=== PATIENT | male | born 1945 | race Caucasian/White ===

== ENCOUNTER → 2016-06-27 | Outpatient (CLI) | payer BC ==
[2016-06-27 10:27] LABS: ALT/SGPT 39 U/L (12-78); AST/SGOT 19 U/L (15-37); BLOOD UREA NITROGEN 20 mg/dl (7-18); BUN/CREATININE RATIO 15.5 (10-20); CALCIUM 9.1 mg/dl (8.5-10.1); CARBON DIOXIDE 30 mmol/L (21-32); CHLORIDE 104 mmol/L (98-107); GLUCOSE 98 mg/dl (70-99); POTASSIUM 4.2 mmol/L (3.5-5.1); SODIUM 142 mmol/L (136-145)
[2016-06-27 10:36] LABS: ALB/GLOB RATIO 1.1 (0.9-2); ALKALINE PHOSPHATASE 79 U/L (45-117); CHOLESTEROL 146 mg/dl (0-200); CHOLESTEROL/HDL RATIO 3.4; HDL CHOLESTEROL 43 mg/dl; LDL CHOLESTEROL CALCULATED 68 mg/dl; TRIGLYCERIDES 175 mg/dl (0-150); VERY LOW DENSITY LIPOPROT CALC 35 mg/dl
== END | disposition home or self-care (01) ==
LOC: C.LAB1850 08:24
PROVIDERS: ATTEND Internal Medicine
DX: E78.5 Hyperlipidemia, unspecified (principal)

== ENCOUNTER → 2017-02-26 | Outpatient (CLI) | payer BC ==
[2017-02-26 09:49] LABS: ALT/SGPT 36 U/L (12-78); BLOOD UREA NITROGEN 16 mg/dl (7-18); BUN/CREATININE RATIO 13.4 (10-20); CALCIUM 9.3 mg/dl (8.5-10.1); CARBON DIOXIDE 28 mmol/L (21-32); CHLORIDE 105 mmol/L (98-107); GLUCOSE 109 mg/dl (70-99); POTASSIUM 4.2 mmol/L (3.5-5.1); SODIUM 141 mmol/L (136-145)
[2017-02-26 09:52] LABS: ALKALINE PHOSPHATASE 84 U/L (45-117); AST/SGOT 24 U/L (15-37)
== END | disposition home or self-care (01) ==
LOC: C.LAB1850 08:20
PROVIDERS: ATTEND Internal Medicine
DX: E78.5 Hyperlipidemia, unspecified (principal); N40.1 Benign prostatic hyperplasia with lower urinary tract symptoms

== ENCOUNTER → 2017-04-10 | Outpatient (CLI) | payer BC | LOC: C.PATHSPEC 16:40 | PROVIDERS: ATTEND Dermatology | DX: B07.9 Viral wart, unspecified (principal) ==

== ENCOUNTER → 2017-08-27 | Outpatient (CLI) | payer BC ==
[2017-08-27 10:10] LABS: ALBUMIN 3.8 gm/dl (3.4-5.0); ALT/SGPT 42 U/L (12-78); BLOOD UREA NITROGEN 17 mg/dl (7-18); CARBON DIOXIDE 30 mmol/L (21-32); CHOLESTEROL 133 mg/dl (0-200); CREATININE 1.14 mg/dl (0.60-1.40); GLUCOSE 102 mg/dl (70-99); SODIUM 139 mmol/L (136-145)
[2017-08-27 10:19] LABS: ALKALINE PHOSPHATASE 76 U/L (45-117); AST/SGOT 24 U/L (15-37); LDL CHOLESTEROL CALCULATED 62 mg/dl; TOTAL PROTEIN 7.3 gm/dl (6.4-8.2)
== END | disposition home or self-care (01) ==
LOC: C.LAB1850 08:39
PROVIDERS: ATTEND Internal Medicine
DX: E78.5 Hyperlipidemia, unspecified (principal); R94.6 Abnormal results of thyroid function studies

== ENCOUNTER 2019-02-15 17:23 | Inpatient (IN) ==
[2019-02-15] MEDS ORDERED: FAMOTIDINE 20MG/5ML IV PUSH IV STA (18:04)
[2019-02-15] MEDS ORDERED: SODIUM CHLORIDE 0.9% 500 ML IV STA (18:04)
[2019-02-15 18:29] LABS: Hematocrit (blood only) 45.5 % (42-52); Hemoglobin 16.4 g/dL (14.0-18.0); Mean Platelet Volume 10.7 fL (7.4-10.4); Platelet Count 184 K/uL (130-400); RDW Coefficient of Variation 12.7 % (11.5-14.5); Red Blood Count 5.29 M/uL (4.7-6.1); White Blood Count 6.22 K/uL (4.8-10.8)
[2019-02-15 18:42] LABS: INR 1.1 (0.9-1.1); Prothrombin Time 10.8 Seconds (9.0-12.0)
[2019-02-15 18:46] LABS: Alanine Aminotransferase 34 U/L (12-78); Albumin Level 4.3 gm/dl (3.4-5.0); Aspartate Aminotransferase 24 U/L (15-37); Blood Urea Nitrogen 18 mg/dl (7-18); Calcium 9.7 mg/dl (8.5-10.1); Carbon Dioxide 30 mmol/L (21-32); Chloride 103 mmol/L (98-107); Est GFR (African American) 64.1; Est GFR (Non-African American) 55.3; Glucose 104 mg/dl (70-99); Potassium 3.8 mmol/L (3.5-5.1); Sodium 141 mmol/L (136-145)
[2019-02-15 18:49] LABS: Albumin Globulin Ratio 1.2 (0.9-2); Alkaline Phosphatase 86 U/L (45-117); Bilirubin,Total 0.5 mg/dl (0.2-1); Globulin 3.5 gm/dl (2.5-4.0); Total Protein 7.8 gm/dl (6.4-8.2)
[2019-02-15] MEDS ORDERED: PANTOprazole 80 MG in DEXTROSE 5% 100 ML IV ONE (19:15)
--- NOTE | 2019-02-15 19:46 | Emergency Department Note ---
Entered by Kylah Irizarry acting as a scribe for History of Present Illness General Chief complaint: GI Assessment Stated complaint: BLOODY DIARRHEA Time Seen by Provider: 02/15/19 17:57 Source: patient History of Present Illness Onset (ago): day(s) (last night) Location: abdomen Pain Consistency: + other (sudden) Maximum Pain Intensity: 0 Quality: + other (GI assessment) Associated symptoms: + other (Positive bright red bloody stool (now diarrhea). Negative pain, previous GI bleeding, being on blood thinners); no nausea/vomiting The patient is a 73 year old male who presents to the ED for a GI assessment. He states that last night he suddenly passed a bright red bloody stool. Since then, he reports he has had bloody diarrhea. He denies any pain, nausea, vomiting, previous GI bleeding, being on blood thinners. He states he had a colonoscopy about 6 years ago. Home Medications Home Medications Medication Instructions Recorded Confirmed Type bimatoprost 0.03 % eye drops 1 drp OP PM ml 11/28/18 02/15/19 History atenolol 25 mg tablet 25 mg PO QAM #90 tab 12/30/18 02/15/19 History simvastatin 20 mg tablet 20 mg PO QPM #90 tab 12/30/18 02/15/19 History hydrochlorothiazide 25 mg PO QAM 02/15/19 02/15/19 History ibuprofen 400 mg PO Q6H PRN 02/15/19 02/15/19 History naproxen sodium [Aleve] 220 mg PO Q12H PRN 02/15/19 02/15/19 History Allergies Allergy/AdvReac Type Severity Reaction Status Date / Time allergan hydrocare saline Allergy Mild Red eyes, Uncoded 02/15/19 17:59 itch Past Med/Surg History Medical History Voice disturbance (Acute) Schatzki's ring (Acute) Male erectile disorder of organic origin (Acute) Hypertension (Chronic) Hyperlipidemia (Chronic) History of shortness of breath (Resolved) Enlarged prostate with lower urinary tract symptoms (LUTS) (Acute) Benign prostate hyperplasia (Chronic) Acid reflux (Chronic) Abnormal glucose (Acute) Abnormal finding on thyroid function test (Acute) Glaucoma Surgical History History of hernia repair S/P tonsillectomy S/P vasectomy Social History Preferred Language: Greenlandic Communication Ability: Effective Educational Audiologist Required: No Beliefs That Will Affect Care: None marital status: Current Living Situation: Spouse current occupational status: retired Feels Safe at Home: Yes Smoking Status: Never smoker Hx Alcohol Use: No Hx Substance Use: No Childhood Exposure to Second-Hand Smoke: No Dental Care, Regularly: Yes Physical Activity Frequency: 3-4 Times per Week Seatbelt Use: always Review of Systems See HPI for pertinent positives & negatives. and A total of 10 systems reviewed and were otherwise negative Physical Exam Vital Signs Vital Signs - 24 hr 02/15/19 17:34 02/15/19 18:22 02/15/19 19:31 Temperature 36.9 C Temperature Source Oral Sepsis Recent Fever Within 48 Hours No Sepsis Action Taken by Nursing No Action Required Pulse Rate 78 67 Pulse Rate [Left Finger] 71 Pulse Rate from SpO2 Sensor 63 Respiratory Rate 20 15 18 Respiratory Effort / Characteristics Non-Labored Non-Labored Respiratory Depth Normal Normal Respiratory Pattern Regular Blood Pressure 194/88 H 167/90 H Blood Pressure [Right Arm] 192/91 H Blood Pressure Mean 123 115 Blood Pressure Mean [Right Arm] 124 Pulse Oximetry 96 94 96 Oxygen Delivery Method Room Air Room Air 02/15/19 20:00 Temperature Temperature Source Sepsis Recent Fever Within 48 Hours Sepsis Action Taken by Nursing Pulse Rate 68 Pulse Rate [Left Finger] Pulse Rate from SpO2 Sensor 60 Respiratory Rate 17 Respiratory Effort / Characteristics Respiratory Depth Respiratory Pattern Blood Pressure 145/84 H Blood Pressure [Right Arm] Blood Pressure Mean 104 Blood Pressure Mean [Right Arm] Pulse Oximetry 96 Oxygen Delivery Method GENERAL: Patient is in no acute distress. HEENT: No acute trauma, normocephalic atraumatic, mucous membranes moist, no nasal congestion, no scleral icterus. NECK: No stridor, no adenopathy, no meningismus, trachea is midline. LUNGS: Clear to auscultation bilaterally, no wheeze, no rhonchi, breath sounds equal. HEART: Without murmurs gallops or rubs, regular rate and rhythm. ABDOMEN: Soft, nontender, bowel sounds positive, no hernias, no peritonitis. RECTAL: No external source for bleeding. No hemorrhoid. Stool is dark, maroon/red. Almost all blood. Heme positive. EXTREMITIES: No cyanosis or edema, full range of motion of all the joints without pain or difficulty, no signs for acute trauma. NEUROLOGIC: Oriented x 3, no acute motor or sensory deficits, no focal weakness. SKIN: No rash, no jaundice, no diaphoresis. Course 1758: Past medical records reviewed. The patient was evaluated in room C10. A complete history and physical exam was performed. 1913: Discussed the patient's case with Dr. Craft, [facility] Hospitalist. The patient will be evaluated for further management. Administered Medications Pantoprazole Sodium 40 mg/ (Dextrose) 100 mls @ 20 mls/hr IV Q5H TODD Stop: 02/18/19 19:29 Last Admin: 02/15/19 19:47 Dose: 20 mls/hr Documented by: [id number] Lactated Ringer's (Lr) 1,000 mls @ 125 mls/hr IV .Q8H TODD Stop: 03/17/19 21:41 Last Admin: 02/15/19 21:53 Dose: 125 mls/hr Documented by: [id number] Discontinued Medications Famotidine (Pepcid 20mg Iv Push) 20 mg IV ONE STA Stop: 02/15/19 18:05 Last Admin: 02/15/19 18:27 Dose: 20 mg Documented by: [id number] Sodium Chloride (Nss) 500 mls @ 999 mls/hr IV .Q31M STA Stop: 02/15/19 18:34 Last Infusion: 02/15/19 19:33 Dose: 0 mls/hr Documented by: [id number] Admin: 02/15/19 18:25 Dose: 999 mls/hr Documented by: [id number] Pantoprazole Sodium 80 mg/ (Dextrose) 120 mls @ 480 mls/hr IV NOW ONE Stop: 02/15/19 19:29 Last Infusion: 02/15/19 19:46 Dose: 0 mls/hr Documented by: [id number] Admin: 02/15/19 19:28 Dose: 480 mls/hr Documented by: [id number] Medical Decision Making Differential Diagnosis Differential diagnosis: Etiologies such as anemia, upper GI bleeding, ulcer, gastritis, lower GI bleeding, polyp, diverticular bleeding, coagulopathy, hemorrhoid, as well as others were entertained. Medical Records Attestation: I reviewed the patient's medical records. Home Medications Current Medication List: was personally reviewed by me Laboratory Data Attestation: I reviewed the patient's lab results. Result diagrams: 02/15/19 18:14 02/15/19 18:14 Lab Results 02/15/19 02/15/19 02/15/19 Range/Units 18:14 18:14 18:14 WBC 6.22 (4.8-10.8) K/uL RBC 5.29 (4.7-6.1) M/uL Hgb 16.4 (14.0-18.0) g/dL Hct 45.5 (42-52) % MCV 86.0 (80-100) fL MCH 31.0 (25-34) pg MCHC 36.0 (32-36) g/dL RDW Std Deviation 40.0 (36.4-46.3) fL RDW Coeff of Bess 12.7 (11.5-14.5) % Plt Count 184 (130-400) K/uL MPV 10.7 H (7.4-10.4) fL PT 10.8 (9.0-12.0) Seconds INR 1.1 (0.9-1.1) APTT 26.0 (21.0-31.0) Seconds PTT Ratio 1.0 Sodium 141 (136-145) mmol/L Potassium 3.8 (3.5-5.1) mmol/L Chloride 103 (98-107) mmol/L Carbon Dioxide 30 (21-32) mmol/L Anion Gap 8.0 (3-11) BUN 18 (7-18) mg/dl Creatinine 1.27 (0.6-1.4) mg/dl Est Cr Clr Drug Dosing Not Reportable Est GFR ( Amer) 64.1 Est GFR (Non-Af Amer) 55.3 BUN/Creatinine Ratio 14.0 (10-20) Glucose 104 H (70-99) mg/dl Calcium 9.7 (8.5-10.1) mg/dl Total Bilirubin 0.5 (0.2-1) mg/dl AST 24 (15-37) U/L ALT 34 (12-78) U/L Alkaline Phosphatase 86 (45-117) U/L Total Protein 7.8 (6.4-8.2) gm/dl Albumin 4.3 (3.4-5.0) gm/dl Globulin 3.5 (2.5-4.0) gm/dl Albumin/Globulin Ratio 1.2 (0.9-2) Blood Type Antibody Screen 02/15/19 Range/Units 18:14 WBC (4.8-10.8) K/uL RBC (4.7-6.1) M/uL Hgb (14.0-18.0) g/dL Hct (42-52) % MCV (80-100) fL MCH (25-34) pg MCHC (32-36) g/dL RDW Std Deviation (36.4-46.3) fL RDW Coeff of Bess (11.5-14.5) % Plt Count (130-400) K/uL MPV (7.4-10.4) fL PT (9.0-12.0) Seconds INR (0.9-1.1) APTT (21.0-31.0) Seconds PTT Ratio Sodium (136-145) mmol/L Potassium (3.5-5.1) mmol/L Chloride (98-107) mmol/L Carbon Dioxide (21-32) mmol/L Anion Gap (3-11) BUN (7-18) mg/dl Creatinine (0.6-1.4) mg/dl Est Cr Clr Drug Dosing Est GFR ( Amer) Est GFR (Non-Af Amer) BUN/Creatinine Ratio (10-20) Glucose (70-99) mg/dl Calcium (8.5-10.1) mg/dl Total Bilirubin (0.2-1) mg/dl AST (15-37) U/L ALT (12-78) U/L Alkaline Phosphatase (45-117) U/L Total Protein (6.4-8.2) gm/dl Albumin (3.4-5.0) gm/dl Globulin (2.5-4.0) gm/dl Albumin/Globulin Ratio (0.9-2) Blood Type B Positive Antibody Screen NEGATIVE Blood Pressure Blood Pressure Findings: Elevated blood pressure Blood Pressure Disposition: further management by hospitalist DREW Narrative There is no leukocytosis or concerning anemia. No coagulopathy. No significant electrolyte abnormality or kidney failure. No evidence for liver enzyme elevati on. Blood type returned at B+. On exam, the patient was not toxic or febrile. He was not hypotensive. The patient did not have any abdominal pain. Rectal exam revealed dark maroon-colored stool which was heme positive. No external source for bleeding was noted. Patient presents with GI bleeding, likely lower GI bleeding. He was given IV saline for hydration. He received IV Pepcid and IV Protonix and then was placed on an IV Protonix drip. The patient requires a hospital stay for work-up for this bleeding. He will likely require a colonoscopy, may be even an endoscopy. Right now, he does not require a blood transfusion. I did speak to the patient and lead case manager. The on-call hospitalist was consulted. Impression & Plan GI bleed, Bright red blood per rectum Discharge Plan Visit Data *Final* Discharge Date/Time: 02/15/19 21:24 Chief Complaint: GI Assessment Stated Complaint: BLOODY DIARRHEA ED Provider: Chinmay Arevalo Discharge Problem: GI bleed, Bright red blood per rectum Patient Disposition: Admitted As Inpatient Discharge Instructions Interventions: ED Discharge Assessment Last Done: 02/15/19 21:24 Discharge Problem: GI bleed Qualifiers: GI bleed type/associated pathology: unspecified gastrointestinal hemorrhage typ e Qualified Code(s): K92.2 - Gastrointestinal hemorrhage, unspecified The scribe's documentation has been prepared under my direction and personally reviewed by me in its entirety. I confirm that the note above accurately reflects all work, treatment, procedures, and medical decision making performed by me.
[2019-02-15] MEDS: PANTOprazole 40 MG in DEXTROSE 5% 100 ML IV SCH ×2 (19:47→23:50)
--- NOTE | 2019-02-15 21:33 | History & Physical Report ---
Date of Service February 15, 2019 Assessment & Plan (1) GI bleed: Admit tele Follow H&H IVF Npo GI consult Protonix gtt DVT prophylaxis = SCDs, holding pharmcologic due to bleeding. Present on Admission?: Yes (2) Bright red blood per rectum: (3) Hypertension: Continue atenolol hold HCTZ Hydralazine PRN Present on Admission?: Yes (4) Hyperlipidemia: Continue Simvastatin (5) Benign prostate hyperplasia: (6) Acid reflux: On Protonix gtt Patient does not use PPI or H2 dc routinely. History of Present Illness 73 y/o male presented to the ED with bright red blood per rectum over a 24 hour period. No F/C, abdominal or epigastric pain, N/V. He has mild cramping pain just prior to bm. He has no history of GI bleeding. He uses Aleve or Ibuprofen intermittently for arthritic pain, but has not increased as of recent. No chest pain or SOB. In the ED he has had 2 maroon colored bms which are heme +. No lightheadedness or syncope. He had a colonoscopy >5 years ago but does not recall the provider who performed. Primary Care Provider: Phan Salcido MD Allergies Allergy/AdvReac Type Severity Reaction Status Date / Time allergan hydrocare saline Allergy Mild Red eyes, Uncoded 02/15/19 17:59 itch Home Medications Home Medications Medication Instructions Recorded Confirmed Type bimatoprost 0.03 % eye drops 1 drp OP PM ml 11/28/18 02/15/19 History atenolol 25 mg tablet 25 mg PO QAM #90 tab 12/30/18 02/15/19 History simvastatin 20 mg tablet 20 mg PO QPM #90 tab 12/30/18 02/15/19 History hydrochlorothiazide 25 mg PO QAM 02/15/19 02/15/19 History ibuprofen 400 mg PO Q6H PRN 02/15/19 02/15/19 History naproxen sodium [Aleve] 220 mg PO Q12H PRN 02/15/19 02/15/19 History Past Med/Surg History Medical History Voice disturbance (Acute) Schatzki's ring (Acute) Male erectile disorder of organic origin (Acute) Hypertension (Acute) Hyperlipidemia (Acute) History of shortness of breath (Resolved) Enlarged prostate with lower urinary tract symptoms (LUTS) (Acute) Benign prostate hyperplasia (Acute) Acid reflux (Acute) Abnormal glucose (Acute) Abnormal finding on thyroid function test (Acute) Glaucoma Surgical History History of hernia repair S/P tonsillectomy S/P vasectomy Social History Preferred Language: Slovenian marital status: Current Living Situation: Spouse current occupational status: retired Feels Safe at Home: Yes Smoking Status: Never smoker Hx Alcohol Use: No Hx Substance Use: No Childhood Exposure to Second-Hand Smoke: No Dental Care, Regularly: Yes Physical Activity Frequency: 3-4 Times per Week Seatbelt Use: always Review of Systems Review of Systems: NEEDS EDITING Constitutional- no fever; no weight loss Eyes- no acute visual changes ENT- no sinus drainage; no pharyngitis Pulmonary- no cough, no wheezing, no shortness of breath Cardiac- no chest pain, no palpitations, no orthopnea, no dependent edema GI- As in HPI - no dysuria, no hematuria Musculoskeletal- no myalgias, + chronic arthritic pain Derm- no rashes, no new skin lesions, no changing skin lesions Hematologic- no unusual bruising, no unusual bleeding Lymphatics- no adenopathy Endocrine- no polyuria or polydipsia; no heat or cold intolerance Neuro- no headaches, no focal neurologic symptoms Psych- no anxiety, no depression Physical Exam Physical Exam: NEEDS EDITING General- adult male, NAD Head- atraumatic Eyes- PERRL, EOMI, anicteric ENT- oropharynx clear Neck- supple, no JVD, no adenopathy, no thyromegaly. Lungs- clear to auscultation and percussion, No rales, rhonchi, or wheezes Heart- regular rhythm; no murmur, no gallop, no rub appreciated Abdomen- normal bowel sounds, soft, nontender. Extremities- no pretibial edema, no calf tenderness; peripheral pulses intact Neuro- alert, oriented x 3; PERRL, EOMI, Non-focal, child care development specialist II-XII grossly intact. Skin- warm & dry Results & Data Vital Signs (Past 12 Hours) Vital Signs Temp Pulse Pulse Resp BP BP Pulse Ox 02/15/19 20:30 84 13 165/102 H 97 02/15/19 20:00 68 17 145/84 H 96 02/15/19 19:31 67 18 167/90 H 96 02/15/19 18:22 71 15 192/91 H 94 02/15/19 17:34 36.9 C 78 20 194/88 H 96 Laboratory Results Laboratory Results WBC 6.22 K/uL (4.8-10.8) 02/15/19 18:14 RBC 5.29 M/uL (4.7-6.1) 02/15/19 18:14 Hgb 16.4 g/dL (14.0-18.0) 02/15/19 18:14 Hct 45.5 % (42-52) 02/15/19 18:14 MCV 86.0 fL (80-100) 02/15/19 18:14 MCH 31.0 pg (25-34) 02/15/19 18:14 MCHC 36.0 g/dL (32-36) 02/15/19 18:14 RDW Std Deviation 40.0 fL (36.4-46.3) 02/15/19 18:14 RDW Coeff of Bess 12.7 % (11.5-14.5) 02/15/19 18:14 Plt Count 184 K/uL (130-400) 02/15/19 18:14 MPV 10.7 fL (7.4-10.4) H 02/15/19 18:14 PT 10.8 Seconds (9.0-12.0) 02/15/19 18:14 INR 1.1 (0.9-1.1) 02/15/19 18:14 APTT 26.0 Seconds (21.0-31.0) 02/15/19 18:14 PTT Ratio 1.0 02/15/19 18:14 Sodium 141 mmol/L (136-145) 02/15/19 18:14 Potassium 3.8 mmol/L (3.5-5.1) 02/15/19 18:14 Chloride 103 mmol/L (98-107) 02/15/19 18:14 Carbon Dioxide 30 mmol/L (21-32) 02/15/19 18:14 Anion Gap 8.0 (3-11) 02/15/19 18:14 BUN 18 mg/dl (7-18) 02/15/19 18:14 Creatinine 1.27 mg/dl (0.6-1.4) 02/15/19 18:14 Est Cr Clr Drug Dosing Not Reportable 02/15/19 18:14 Est GFR ( Amer) 64.1 02/15/19 18:14 Est GFR (Non-Af Amer) 55.3 02/15/19 18:14 BUN/Creatinine Ratio 14.0 (10-20) 02/15/19 18:14 Glucose 104 mg/dl (70-99) H 02/15/19 18:14 Calcium 9.7 mg/dl (8.5-10.1) 02/15/19 18:14 Total Bilirubin 0.5 mg/dl (0.2-1) 02/15/19 18:14 AST 24 U/L (15-37) 02/15/19 18:14 ALT 34 U/L (12-78) 02/15/19 18:14 Alkaline Phosphatase 86 U/L (45-117) 02/15/19 18:14 Total Protein 7.8 gm/dl (6.4-8.2) 02/15/19 18:14 Albumin 4.3 gm/dl (3.4-5.0) 02/15/19 18:14 Globulin 3.5 gm/dl (2.5-4.0) 02/15/19 18:14 Albumin/Globulin Ratio 1.2 (0.9-2) 02/15/19 18:14 Blood Type B Positive 02/15/19 18:14 Antibody Screen NEGATIVE 02/15/19 18:14 Code Status & VTE Plan VTE Prophylaxis Plan VTE Prophylaxis will be ordered: Yes PG Care Time/CCT Total # of Minutes Spent Total Time Spent: 45 Total Time Spent with Patient: Total time spent is greater than 50% in coordination of care (as documented) at patient's floor/unit and/or counseling patient: (1) GI bleed GI bleed type/associated pathology: unspecified gastrointestinal hemorrhage type Qualified Code(s): K92.2 - Gastrointestinal hemorrhage, unspecified
[2019-02-15] MEDS ORDERED: MoRPHine SULFATE 4 MG/ML 1 ML CARP\\VIAL IV PRN (21:42)
[2019-02-15] MEDS ORDERED: ONDANSETRON INJ 2 MG/ML 2 ML VIAL IV PRN (21:42)
[2019-02-15] MEDS ORDERED: ACETAMINOPHEN 325 MG TAB PO PRN (21:42)
[2019-02-15] MEDS ORDERED: MoRPHine SULFATE 2 MG/ML CARP IV PRN (21:42)
[2019-02-15] MEDS ORDERED: HydrALAZINE HCL 20 MG/ML VIAL IV PRN (21:42)
[2019-02-15] MEDS: LACTATED RINGER'S 1,000 ML IV SCH (21:53)
[2019-02-15] MEDS: SIMVASTATIN 20 MG TAB PO SCH (22:18)
[2019-02-16 00:25] LABS: Hematocrit (blood only) 39.8 % (42-52); Hemoglobin 13.9 g/dL (14.0-18.0)
[2019-02-16] MEDS: LACTATED RINGER'S 1,000 ML IV SCH ×4 (05:12→23:02)
[2019-02-16] MEDS: PANTOprazole 40 MG in DEXTROSE 5% 100 ML IV SCH ×3 (05:12→15:18)
[2019-02-16 05:38] LABS: Hematocrit (blood only) 38.6 % (42-52); Hemoglobin 13.3 g/dL (14.0-18.0); Mean Corpuscular Hgb Conc 34.5 g/dL (32-36); Mean Corpuscular Volume 86.7 fL (80-100); Mean Platelet Volume 10.9 fL (7.4-10.4); Platelet Count 163 K/uL (130-400); RDW Coefficient of Variation 12.9 % (11.5-14.5); RDW Standard Deviation 41.1 fL (36.4-46.3); Red Blood Count 4.45 M/uL (4.7-6.1); White Blood Count 6.42 K/uL (4.8-10.8)
[2019-02-16 05:57] LABS: BUN Creatinine Ratio 13.3 (10-20); Creatinine Clr Calc Pharmacy 50.8 ml/min; Est GFR (African American) 75.4; Est GFR (Non-African American) 65.1; Magnesium 1.9 mg/dl (1.8-2.4); Potassium 3.6 mmol/L (3.5-5.1)
[2019-02-16 06:02] LABS: Calcium 8.5 mg/dl (8.5-10.1)
[2019-02-16] MEDS: ATENOLOL 25 MG TABLET PO SCH (10:12)
--- NOTE | 2019-02-16 12:16 | Gastrointestinal Consultation ---
Date of Consultation February 16, 2019 Assessment & Plan (1) Bright red blood per rectum: Suspect diverticular bleed. We discussed other possibilities including hemorrhoids and malignancy and less likely IBD at this age. Discussed that diverticular bleeding will often self-resolve, particularly after a bowel prep. We will proceed with the following plan: 1) Clear liquids today 2) NPO after midnight with exception of Golytely prep as ordered 3) Colonoscopy tomorrow for further evaluation of rectal bleeding 4) Continue to monitor H/H Thank you for allowing us to participate in the care of this patient. If you should have any further questions or concerns, do not hesitate to contact us. Present on Admission?: Yes Supervising Physician Co-Signing Physician Notes Agree with KRISHNA Luna as above Abd: Soft, NT, ND, +BS Patient does complain of dysphagia tonight and does have history of Schatzki's ring. He is concerned bleeding may be coming from UGI tract as he has had worsening symptoms recently Continue current therapy Proceed with EGD and Colonoscopy in the AM. History of Present Illness Attending Physician: Loki Mendes MD History of Present Illness Patient is a 73 yo male with a PMH of HTN, HLD, BPH, and GERD who presents to the hospital with rectal bleeding. He reports that the bleeding began this weekend with what was initially a small amount of bright red blood associated with some loose stool/diarrhea. He reports that throughout the weekend, his symptoms of bleeding abruptly worsened. He denies abdominal pain. He reports he is no longer passing stool but continued to pass bright red blood overnight. He denies any rectal pain or discomfort. He has a history of a colonoscopy 7 years ago per his reports. He denies ever having a significant lower GI issue. He notes that he is feeling a little better this morning. His son has Crohn's Disease, but he denies family history of GI malignancy. Per review of the charts, it does appear that in 2011 he had a colonoscopy that indicated diverticulosis. This was performed by Dr. Wagner. He denies black, tarry stools, heartburn, epigastric pain, or dysphagia. He reports a history of dyspepsia which responds to Zantac. In the ED, his initial hemoglobin was 16. It is now 13.3 with a hematocrit of 38.6. BUN/Cr are within normal limits. Allergies Allergy/AdvReac Type Severity Reaction Status Date / Time charity evita saline Allergy Mild Red eyes, Uncoded 02/15/19 17:59 itch Home Medications Home Medications Medication Instructions Recorded Confirmed Type bimatoprost 0.03 % eye drops 1 drp OP PM ml 11/28/18 02/15/19 History atenolol 25 mg tablet 25 mg PO QAM #90 tab 12/30/18 02/15/19 History simvastatin 20 mg tablet 20 mg PO QPM #90 tab 12/30/18 02/15/19 History hydrochlorothiazide 25 mg PO QAM 02/15/19 02/15/19 History ibuprofen 400 mg PO Q6H PRN 02/15/19 02/15/19 History naproxen sodium [Aleve] 220 mg PO Q12H PRN 02/15/19 02/15/19 History Patient History Medical History Voice disturbance (Acute) Schatzki's ring (Acute) Male erectile disorder of organic origin (Acute) Hypertension (Chronic) Hyperlipidemia (Chronic) History of shortness of breath (Resolved) Enlarged prostate with lower urinary tract symptoms (LUTS) (Acute) Benign prostate hyperplasia (Chronic) Acid reflux (Chronic) Abnormal glucose (Acute) Abnormal finding on thyroid function test (Acute) Glaucoma Surgical History History of hernia repair S/P tonsillectomy S/P vasectomy Social History Preferred Language: Martiniquais Communication Ability: Effective Unarmed Security Officer Required: No Beliefs That Will Affect Care: None marital status: Current Living Situation: Spouse current occupational status: retired Feels Safe at Home: Yes Smoking Status: Never smoker Hx Alcohol Use: No Hx Substance Use: No Childhood Exposure to Second-Hand Smoke: No Dental Care, Regularly: Yes Physical Activity Frequency: 3-4 Times per Week Seatbelt Use: always Review of Systems Constitutional: no fever and no chills Eyes: no acute issues Ear, Nose, Mouth, Throat: no acute issues Respiratory: no cough and no dyspnea Cardiovascular: no chest pain Gastrointestinal: + diarrhea/loose stools (has resolved since admission) and + blood in stools; no abdominal pain Integumentary: no acute complaints Neurologic: no generalized weakness Psychiatric: no acute complaints Endocrine: no fatigue Hematologic / Lymphatic: no easy bleeding Physical Exam Constitutional: WD/WN, vitals as above Eyes: PERRL, conjunctivae normal, anicteric sclerae Respiratory: normal respiratory effort, lungs clear to auscultation normal respiratory effort Cardiovascular: RRR, no murmur, no edema Gastrointestinal (Abdomen): normal bowel sounds, soft, nontender, no hepatosplenomegaly Musculoskeletal: no cyanosis or clubbing, extremities motor strength 5/5 Skin: no rashes, warm and dry Neurologic: no acute issues Psychiatric: A+Ox3, euthymic affect Results & Data Vital Signs (Past 12 Hours) Vital Signs Temp Pulse Pulse Resp BP Pulse Ox 02/16/19 09:20 62 02/16/19 07:25 36.7 C 70 16 165/73 H 96 02/16/19 03:00 36.5 C 60 16 157/72 H 95 02/16/19 00:25 50 L PG Care Time/CCT Total # of Minutes Spent Total Time Spent with Patient: Total time spent is greater than 50% in coordination of care (as documented) at patient's floor/unit and/or counseling patient:
--- NOTE | 2019-02-16 17:02 | Hospitalist Progress Note ---
Date of Service February 16, 2019 Assessment & Plan (1) GI bleed: Possibly due to diverticular bleed. - Follow H&H - GI consulted - Plan for colonoscopy tomorrow - NPO @ midnight (2) Hypertension: BP is 130/70. - Continue atenolol - Hold HCTZ - Hydralazine PRN (3) Hyperlipidemia: - Continue simvastatin (4) Benign prostate hyperplasia: No LUTS. - Monitor (5) Acid reflux: Patient does not use PPI or H2 dc routinely. - Initially on PPI ggt, but stopped on 02/16 for lower concern. - PPI PO BID (6) DVT prophylaxis: SCDs - Low DVT risk per admission calculator & chemoprophylaxis contraindicated given bleeding Subjective Doing well. Blood in BMs is resolving. Review of Systems Review of Systems: All systems reviewed & are unremarkable except as noted in HPI & below Physical Exam Constitutional: WD/WN, vitals as above Eyes: EOM intact bilaterally; no conjunctival abnormality ENMT: external ear and nose normal, oropharynx normal Neck: trachea midline, no thyromegaly normal visual inspection Respiratory: normal respiratory effort, lungs clear to auscultation no respiratory distress Cardiovascular: RRR, no murmur, no edema Gastrointestinal (Abdomen): Inspection/Auscultation: abdomen normal to inspection; abdomen not distended Musculoskeletal: no cyanosis or clubbing, extremities motor strength 5/5 Skin: no rashes, warm and dry Neurologic: moves all extremities and awake Psychiatric: Orientation: alert, oriented to person and cooperative Results & Data Vital Signs (Past 12 Hours) Vital Signs Temp Pulse Pulse Resp BP Pulse Ox 02/16/19 16:00 60 02/16/19 15:11 37.3 C 55 L 18 128/73 95 02/16/19 11:25 69 16 153/69 H 94 02/16/19 09:20 62 02/16/19 07:25 36.7 C 70 16 165/73 H 96 PG Care Time/CCT Total # of Minutes Spent Total Time Spent with Patient: Total time spent is greater than 50% in coordination of care (as documented) at patient's floor/unit and/or counseling patient: (1) GI bleed GI bleed type/associated pathology: unspecified gastrointestinal hemorrhage type Qualified Code(s): K92.2 - Gastrointestinal hemorrhage, unspecified
[2019-02-16] MEDS: LAVAGE SOLUTION 4000ML PO SCH (17:56)
[2019-02-16] MEDS: SIMVASTATIN 20 MG TAB PO SCH (19:51)
[2019-02-16] MEDS: PANTOprazole 40 MG TAB PO SCH (19:52)
[2019-02-17] MEDS: LAVAGE SOLUTION 4000ML PO SCH (03:22)
[2019-02-17 07:33] LABS: Hematocrit (blood only) 38.2 % (42-52); Hemoglobin 13.3 g/dL (14.0-18.0); Mean Corpuscular Hgb Conc 34.8 g/dL (32-36); Mean Corpuscular Volume 86.4 fL (80-100); Mean Platelet Volume 10.7 fL (7.4-10.4); Platelet Count 159 K/uL (130-400); RDW Coefficient of Variation 12.7 % (11.5-14.5); RDW Standard Deviation 40.2 fL (36.4-46.3); Red Blood Count 4.42 M/uL (4.7-6.1); White Blood Count 5.15 K/uL (4.8-10.8)
[2019-02-17 08:04] LABS: BUN Creatinine Ratio 7.7 (10-20); Calcium 8.8 mg/dl (8.5-10.1); Creatinine Clr Calc Pharmacy 52.7 ml/min; Est GFR (African American) 78.8; Magnesium 1.8 mg/dl (1.8-2.4); Potassium 3.4 mmol/L (3.5-5.1)
[2019-02-17] MEDS: PANTOprazole 40 MG TAB PO SCH (08:30)
[2019-02-17] MEDS: ATENOLOL 25 MG TABLET PO SCH (08:30)
--- NOTE | 2019-02-17 09:59 | History & Physical Bridge Note ---
Date of Service February 17, 2019 History & Physical Bridge Note I have examined the patient, reviewed the History & Physical and in the interval since the performance of the History & Physical I have noted the following changes of clinical significance: patient reports passing some bright red blood per rectum last evening with bms after consuming bowel preparation but this has since subsided. States he is passing clear liquid stools this morning. No abdominal pain/n/v. Denies any chest pain, palpitations, shortness of breath or cough. H&H this morning was noted to be 13.3/38.2. PE: General: A&Ox3. Vital signs stable. Respiratory: CTA bilaterally. Cardiovascular: RRR without M/R/G. Gastrointestinal: Abdomen soft, nontender. Hyperactive bowel sounds. Musculoskeletal: Normal to inspection. A/P: NPO for now. EGD and colonoscopy by Dr. Gallardo today. Additional recommendations pending results of testing. Supervising Physician Co-Signing Physician Notes Agree with TOÑO Marie as above Abd: Soft, NT, ND, +BS Continue current therapy Proceed with EGD and colonoscopy today
[2019-02-17] MEDS: LACTATED RINGER'S 1,000 ML IV SCH (12:07)
[2019-02-17] MEDS ORDERED: LIDOCAINE HCL 2% 2 ML VIAL/AMP(20MG/ML) INFIL ONE (12:43)
[2019-02-17] MEDS ORDERED: PROPOFOL IV EMULSION 10 MG/ML 20 ML VIAL IV ONE ×2 (12:43→13:39)
[2019-02-17] MEDS ORDERED: ePHEDrine sulfate 50 MG/ML AMP IV PRN (12:48)
[2019-02-17] MEDS ORDERED: ATROPINE SULFATE 0.1 MG/ML 10ML SYR IV PRN (12:48)
--- NOTE | 2019-02-17 12:48 | Anesthesiology Consultation ---
Date of Service February 17, 2019 Assessment & Plan Chart Review Chart Review: Acceptable Risk for Surgery and Patient NOT seen in Pre Admission Testing Consults Requested none ASA ASA3 Proposed Anesthesia Anesthesia Type: MAC Risk / Benefits Reviewed With: PT / POA / Parent / Guardian, Accepts Plan and Informed Consent Obtained History Surgery Operation Date: 02/17/19 09:15 Proposed Procedures p Colonoscopy EGD Dr. Sami Gallardo, DO Height/Weight Height: 5 ft 5 in Weight: 66.6 kg Allergies Allergy/AdvReac Type Severity Reaction Status Date / Time allergan hydrocare saline Allergy Mild Red eyes, Uncoded 02/15/19 17:59 itch Medications Home Medications Medication Instructions Recorded Confirmed Last Taken bimatoprost 0.03 % eye drops 1 drp OP PM ml 11/28/18 02/15/19 02/14/19 atenolol 25 mg tablet 25 mg PO QAM #90 tab 12/30/18 02/15/19 02/15/19 simvastatin 20 mg tablet 20 mg PO QPM #90 tab 12/30/18 02/15/19 02/14/19 hydrochlorothiazide 25 mg PO QAM 02/15/19 02/15/19 02/15/19 ibuprofen 400 mg PO Q6H PRN 02/15/19 02/15/19 02/13/19 naproxen sodium [Aleve] 220 mg PO Q12H PRN 02/15/19 02/15/19 02/15/19 220mg Active Medications Generic Name Dose Route Start Last Admin Trade Name Freq PRN Reason Stop Dose Admin Atenolol 25 mg 02/16/19 09:00 02/17/19 08:30 Tenormin PO 03/18/19 08:59 25 mg QAM TODD Administration Lactated Ringer's 1,000 mls @ 75 mls/hr 02/15/19 21:42 02/17/19 12:07 Lr IV 03/17/19 21:41 75 mls/hr .[id number] TODD Administration Miscellaneous 1 ea 02/16/19 08:00 02/17/19 09:15 Order Awaiting Action N/A 03/18/19 07:59 Not Given QS TODD Pantoprazole Sodium 40 mg 02/16/19 21:00 02/17/19 08:30 Protonix PO 03/18/19 20:59 40 mg BID TODD Administration Simvastatin 20 mg 02/15/19 21:42 02/16/19 19:51 Zocor PO 03/17/19 21:41 20 mg QPM TODD Administration NPO Date Last Intake of Fluids: 02/17/19 Time Last Intake of Fluids: 09:00 Last Intake of Fluids Comment: sip Date Last Intake of Solids: 02/15/19 Time Last Intake of Solids: 12:00 Past Medical History Medical History Voice disturbance (Acute) Schatzki's ring (Acute) Male erectile disorder of organic origin (Acute) Hypertension (Chronic) Hyperlipidemia (Chronic) History of shortness of breath (Resolved) Enlarged prostate with lower urinary tract symptoms (LUTS) (Acute) Benign prostate hyperplasia (Chronic) Acid reflux (Chronic) Abnormal glucose (Acute) Abnormal finding on thyroid function test (Acute) Glaucoma Exercise / Class Metabolic Activity II 4-5 Yardwork/Stairs/Walk up hill Past Surgical History Surgical History History of hernia repair S/P tonsillectomy S/P vasectomy Past Anesthesia History No Hx of Anesthesia Complications and No Family Hx of Anesthesia Complications History of PONV No Hx of PONV and No Hx of Motion Sickness Social History Smoking Status: Never smoker Do You Dip or Chew Tobacco: No Hx Alcohol Use: No Hx Substance Use: No Physical Exam Vital Signs Last Vital Signs Temp 37.1 C 02/17/19 12:38 Pulse 74 02/17/19 12:38 Resp 16 02/17/19 12:38 BP 182/84 H 02/17/19 12:38 Pulse Ox 99 02/17/19 12:38 Constitutional not obese ENMT Mouth: no dentition abnormality Thyromental Distance: > or= 3.5 Finger Breadths Mallampati Class: II Neck normal visual inspection and trachea midline; neck extension not limited Respiratory normal respiratory effort Auscultation: lungs clear to auscultation bilaterally Cardiovascular Rate/Rhythm: regular rate and regular rhythm Heart Sounds: no murmur Vessels: no carotid bruit Musculoskeletal Spine: normal cervical ROM Neurologic moves all extremities Motor/Sensory: no sensory deficit Psychiatric Orientation: alert and oriented x 3 Testing Laboratory Results 02/17/19 07:21 02/17/19 07:21 PT 10.8 Seconds (9.0-12.0) 02/15/19 18:14 INR 1.1 (0.9-1.1) 02/15/19 18:14 APTT 26.0 Seconds (21.0-31.0) 02/15/19 18:14 Blood Type B Positive 02/15/19 18:14 Antibody Screen NEGATIVE 02/15/19 18:14
[2019-02-17] MEDS ORDERED: PHENYLEPHRINE 100MCG/ML 5ML SYR ONE (13:39)
--- NOTE | 2019-02-17 13:45 | GI REPORT ---
Patient Name: Pranay Sol Procedure Date: 02/17/2019 12:50 PM Date of : 1945 Admit Type: Inpatient Age: 73 Gender: Male Attending MD: Dilip Gallardo DO Procedure: Colonoscopy Providers: Dilip Gallardo DO Referring MD: Referred Self Indications: Hematochezia Medicines: Monitored Anesthesia Care Complications: No immediate complications. Estimated Blood Loss: Estimated blood loss: none. Procedure: Pre-Anesthesia Assessment: - Prior to the procedure, a History and Physical was performed, and patient medications and allergies were reviewed. The patient's tolerance of previous anesthesia was also reviewed. The risks and benefits of the procedure and the sedation options and risks were discussed with the patient. All questions were answered, and informed consent was obtained. Prior Anticoagulants: The patient has taken no previous anticoagulant or antiplatelet agents. ASA Grade Assessment: III - A patient with severe systemic disease. After reviewing the risks and benefits, the patient was deemed in satisfactory condition to undergo the procedure. After I obtained informed consent, the scope was passed under direct vision. Throughout the procedure, the patient's blood pressure, pulse, and oxygen saturations were monitored continuously. The Scope was introduced through the anus and advanced to the terminal ileum. The colonoscopy was performed without difficulty. The patient tolerated the procedure well. The quality of the bowel preparation was good. The terminal ileum, ileocecal valve, appendiceal orifice, and rectum were photographed. Findings: The perianal and digital rectal examinations were normal. Multiple small-mouthed diverticula were found in the sigmoid colon. Non-bleeding internal hemorrhoids were found during retroflexion. The hemorrhoids were small. Impression: - Diverticulosis in the sigmoid colon. - Non-bleeding internal hemorrhoids. - No specimens collected. Recommendation: - Return patient to hospital an for ongoing care. - Advance diet as tolerated. - Continue present medications. Dilip Gallardo DO 02/17/2019 1:45:14 PM This report has been signed electronically. Note Initiated On: 02/17/2019 12:50 PM Number of Addenda: 0 I attest to the content of the Intraoperative Record and orders documented therein, exceptions below {[id number]}
--- NOTE | 2019-02-17 13:48 | GI REPORT ---
Patient Name: Pranay Sol Procedure Date: 02/17/2019 12:51 PM Date of : 1945 Admit Type: Inpatient Age: 73 Gender: Male Attending MD: Dilip Gallardo DO Procedure: Upper GI endoscopy Providers: Dilip Gallardo DO Referring MD: Referred Self Indications: Dysphagia Medicines: Monitored Anesthesia Care Complications: No immediate complications. Estimated Blood Loss: Estimated blood loss: none. Procedure: Pre-Anesthesia Assessment: - Prior to the procedure, a History and Physical was performed, and patient medications and allergies were reviewed. The patient's tolerance of previous anesthesia was also reviewed. The risks and benefits of the procedure and the sedation options and risks were discussed with the patient. All questions were answered, and informed consent was obtained. Prior Anticoagulants: The patient has taken no previous anticoagulant or antiplatelet agents. ASA Grade Assessment: III - A patient with severe systemic disease. After reviewing the risks and benefits, the patient was deemed in satisfactory condition to undergo the procedure. After obtaining informed consent, the endoscope was passed under direct vision. Throughout the procedure, the patient's blood pressure, pulse, and oxygen saturations were monitored continuously. The scope was introduced through the mouth, and advanced to the second part of duodenum. The upper GI endoscopy was accomplished without difficulty. The patient tolerated the procedure well. Findings: A moderate Schatzki ring was found in the distal esophagus. A TTS dilator was passed through the scope. Dilation with a 15-16.5-18 mm balloon dilator was performed to 18 mm. A small hiatal hernia was present. Localized moderate inflammation characterized by erythema was found in the gastric antrum. Biopsies were taken with a cold forceps for histology. One non-bleeding cratered gastric ulcer with no stigmata of bleeding was found in the gastric antrum. The lesion was 5 mm in largest dimension. The examined duodenum was normal. Impression: - Moderate Schatzki ring. Dilated. - Small hiatal hernia. - Gastritis. Biopsied. - Non-bleeding gastric ulcer with no stigmata of bleeding. - Normal examined duodenum. Recommendation: - Return patient to hospital an for ongoing care. - Advance diet as tolerated. - Continue present medications, including Protonix 40 mg by mouth twice daily. - Await pathology results. Dilip Gallardo DO 02/17/2019 1:48:19 PM This report has been signed electronically. Note Initiated On: 02/17/2019 12:51 PM Number of Addenda: 0 I attest to the content of the Intraoperative Record and orders documented therein, exceptions below {[id number]}
--- NOTE | 2019-02-17 13:51 | Anesthesiology Progress Note ---
Date of Service February 17, 2019 Anesthesia Post Procedure Vital Signs Vital Signs: Temp Pulse Pulse Pulse Resp BP BP 02/17/19 12:38 37.1 C 74 16 182/84 H 02/17/19 10:55 36.9 C 60 18 141/66 H 02/17/19 09:30 72 02/17/19 07:25 36.8 C 69 20 157/76 H 02/17/19 04:07 36.5 C 65 18 182/77 H 02/17/19 00:00 74 02/16/19 23:25 36.9 C 61 18 149/68 H 02/16/19 19:13 37.0 C 70 18 169/89 H 02/16/19 16:00 60 02/16/19 15:11 37.3 C 55 L 18 128/73 Pulse Ox 02/17/19 12:38 99 02/17/19 10:55 97 02/17/19 09:30 02/17/19 07:25 99 02/17/19 04:07 97 02/17/19 00:00 02/16/19 23:25 95 02/16/19 19:13 98 02/16/19 16:00 02/16/19 15:11 95 Transfer of Care Handoff Completed per policy Notes Mental Status: alert / awake / arousable Patient Amnestic to Procedure: Yes Nausea / Vomiting: adequately controlled Pain: adequately controlled Airway Patency, RR, SpO2: stable & adequate BP & HR: stable & adequate Hydration State: stable & adequate Anesthetic Complications: no major complications apparent
--- NOTE | 2019-02-17 16:39 | Discharge Summary ---
Date of Service February 17, 2019 Principal Diagnosis Likely diverticular bleed Discharge Exam Constitutional WD/WN, vitals as above Eyes EOM intact bilaterally; no conjunctival abnormality ENMT external ear and nose normal, oropharynx normal Neck trachea midline, no thyromegaly normal visual inspection Respiratory normal respiratory effort, lungs clear to auscultation no respiratory distress Cardiovascular RRR, no murmur, no edema Gastrointestinal (Abdomen) Inspection/Auscultation: abdomen normal to inspection; abdomen not distended Musculoskeletal no cyanosis or clubbing, extremities motor strength 5/5 Skin no rashes, warm and dry Neurologic moves all extremities and awake Psychiatric Orientation: alert, oriented to person and cooperative Discharge Data Allergies Allergy/AdvReac Type Severity Reaction Status Date / Time allergan hydrocare saline Allergy Mild Red eyes, Uncoded 02/15/19 17:59 itch Consultations 02/15/19 18:58 ED Decision to Admit Stat 02/15/19 21:42 Consult Gastroenterology Routine Procedures Performed Operation Date: 02/17/19 09:15 Actual Procedures p EGD Biopsy Dilatation - Dilip Gallardo, DO s Colonoscopy - Dilip Gallardo, DO Hospital Course (1) GI bleed: Possibly due to diverticular bleed. Suffered from acute blood loss anemia. - Follow H&H -> Fell from 16.4 to 13.9, but fairly stable after. - EGD on 02/17 showed non-bleeding ulcer -> Rec for PPI BID x 4-6 weeks. Biopsy pending for H. pylori. - [place] on 02/17 showed some small diverticuli. Likely source of bleeding. Counseled diet. Will follow up with Dr. Gallardo in the office. (2) Acute blood loss anemia: From GI bleed. (3) Hypertension: BP is 130/70. - Continued atenolol - Held HCTZ, but restart on discharge. (4) Hyperlipidemia: - Continue simvastatin (5) Benign prostate hyperplasia: No LUTS. - Monitor (6) Acid reflux: Patient does not use PPI or H2 dc routinely. - Initially on PPI ggt, but stopped on 02/16 for lower concern. - PPI PO BID (7) DVT prophylaxis: SCDs - Low DVT risk per admission calculator & chemoprophylaxis contraindicated given bleeding Total Time Total Time Spent Total Time Spent (In Minutes): 35 Discharge Plan Discharge Items Patient Disposition: Home - Self-Care Reason For Visit: GI BLEED Discharge Diagnosis: Likely diverticular bleed Activity: Resume your previous activity Non-emergency contact: Primary Care Provider and She[facility]ancher Call non-emergency contact if: your symptoms worsen Follow-up/Referrals: Phan Salcido MD [Primary Care Provider] - 02/20/19 11:30 am (Please, follow up with Dr. Trina San on SaturdayFebruary 20 at 11:30 am. *If you need to change this appointment, call the office at [phone].) Treasure Nava CRNP [Nurse Practitioner] - 02/27/19 10:00 am (Please, follow up at [facility] with Treasure LUNDBERG on SaturdayFebruary 27 at 10:00 am. *The office is located at [address] [place] [address] in [facility]. If you need to change this appointment, call the office at [phone].) Diet: Regular Addtl Attending Provider Instructions: Please take the Protonix two times per day. Please stop any NSAIDs (ibuprofen and naproxen) until you are seen by Dr. Gallardo. Please take Tylenol (acetaminop hen) for headaches or pain. This is from the [facility] website [email or web address]://[email or web address]/diverticular_disease_and_diet/: Diet for Diverticulosis Eat a high-fiber diet when you have diverticulosis. Fiber softens the stool and helps prevent constipation. It also can help decrease pressure in the colon and help prevent flare-ups of diverticulitis. High-fiber foods include: Beans and legumes Bran, whole wheat bread and whole grain cereals such as oatmeal Brown and wild rice Fruits such as apples, bananas and pears Vegetables such as broccoli, carrots, corn and squash Whole wheat pasta If you currently don't have a diet high in fiber, you should add fiber gradually. This helps avoid bloating and abdominal discomfort. The target is to eat 25 to 30 grams of fiber daily. Drink at least 8 cups of fluid daily. Fluid will help soften your stool. Exercise also promotes bowel movement and helps prevent constipation. When the colon is not inflamed, eat popcorn, nuts and seeds as tolerated. Pending Studies at Discharge: Yes (Gastric biopsy) Stand-Alone Forms: My [facility] Medications and DC Order Prescriptions: New pantoprazole 40 mg Tablet,Delayed Release (Dr/Ec) 40 mg PO BID Qty: 60 RF: 0 acetaminophen [Mapap (acetaminophen)] 325 mg Tablet 650 mg PO Q4H PRN (Reason: pain) Qty: 7 RF: 0 Continued bimatoprost 0.03 % drops 1 drp OP PM RF: 0 atenolol 25 mg tablet 25 mg PO QAM Qty: 90 RF: 0 simvastatin 20 mg tablet 20 mg PO QPM Qty: 90 RF: 0 hydrochlorothiazide 25 mg tablet 25 mg PO QAM RF: 0 Discontinued ibuprofen 200 mg Tablet 400 mg PO Q6H PRN (Reason: Pain) RF: 0 naproxen sodium [Aleve] 220 mg Capsule 220 mg PO Q12H PRN (Reason: Pain) RF: 0 Discharge Orders: Discharge Order (Routine); Ordered 02/17/19 Ordered By: Loki Mendes Admission Data Admit Date/Time: 02/15/19 20:15 Attending Provider: Loki Mendes Admit Provider: Yuval Craft Primary Care Provider: Phan Salcido V. Other Providers: eJn Alexander Marten Other Interventions: Discharge Summary Assessment (RN) Last Done: 02/17/19 14:28
== END 2019-02-17 18:11 | disposition home or self-care (01) | DRG 378 ==
LOC: ED 17:23 → 2S 20:15 → SUATTDRO 20:15 → 2S 21:24